=== PATIENT | female | born 1935 | race Hispanic/Latino ===

== ENCOUNTER → 2017-09-27 | Outpatient (CLI) | payer OTHER | END | disposition home or self-care (01) | LOC: RAH 12:57 | PROVIDERS: ATTEND Family Medicine | DX: R09.89 Other specified symptoms and signs involving the circulatory and respiratory systems (principal) | CPT/HCPCS: 93922 ==

== ENCOUNTER → 2017-11-07 | Outpatient (CLI) | payer OTHER ==
[~2017-11-07] VITALS: Ht 172.7 cm; Wt 63.0 kg
[~2017-11-07] MED LIST: REGADENOSON 0.4 MG/5 ML PF SYG IVP SCH
== END | disposition home or self-care (01) ==
LOC: SHCH 08:27
PROVIDERS: ATTEND Internal Medicine Cardiovascular Disease
DX: Z01.818 Encounter for other preprocedural examination (principal); I48.91 Unspecified atrial fibrillation
CPT/HCPCS: 78452; 93017; 96374; A9500 ×2; J2785

== ENCOUNTER 2017-12-30 08:00 | Emergency (ER) | payer OTHER ==
[2017-12-30 09:08] LABS: BASOPHILS % (AUTO) 1.1 % (0.0-5.0); EOSINOPHILS % (AUTO) 1.9 % (0.0-8.0); HEMATOCRIT 46.9 % (36-48); LYMPHOCYTES % (AUTO) 18.8 % (21.0-51.0); MEAN CORPUSCULAR HEMOGLOBIN 29.6 pg (27.0-33.0); MEAN CORPUSCULAR HGB CONC 34.5 g/dL (32.0-36.0); MEAN CORPUSCULAR VOLUME 85.7 fL (79-99); MONOCYTES % (AUTO) 7.9 % (3.0-13.0); NEUTROPHILS % (AUTO) 70.3 % (40.0-77.0); NUCLEATED RED BLOOD CELLS 0.1 % (0.0-0.19); PLATELET COUNT (AUTO) 191 K/uL (130-400); RED BLOOD CELL COUNT(AUTO) 5.47 MIL/uL (4.00-5.50); WHITE BLOOD COUNT (AUTO) 5.2 K/uL (4.8-10.8)
[2017-12-30 09:17] LABS: APPEARANCE,URINE Clear (CLEAR); BILIRUBIN,URINE Negative (NEGATIVE); COLOR,URINE Yellow (YELLOW); GLUCOSE, URINE (UA) Negative (NEGATIVE); KETONES,URINE Negative (NEGATIVE); LEUKOCYTE ESTERASE ,URINE Negative (NEGATIVE); NITRATE,URINE Negative (NEGATIVE); OCCULT BLOOD,URINE Negative (NEGATIVE); PROTEIN,URINE Negative (NEGATIVE)
[2017-12-30 09:22] LABS: INR 1.16 (0.85-1.15); PROTHROMBIN TIME 12.1 SEC (9.6-11.6)
[2017-12-30 10:01] LABS: CREATININE 0.9 mg/dL (0.5-1.5); POTASSIUM 4.1 mmol/L (3.5-5.1)
[2017-12-30 10:14] LABS: ALBUMIN 3.5 g/dL (3.5-5.0); BILIRUBIN,TOTAL 0.8 mg/dL (0.2-1.0); CREATINE KINASE MB 0.8 ng/mL (0.5-3.6); TOTAL PROTEIN, SERUM 6.5 g/dL (6.0-8.3)
== END 2017-12-30 15:51 | disposition home or self-care (01) ==
LOC: EDH 08:00
DX: G45.9 Transient cerebral ischemic attack, unspecified (principal); I48.91 Unspecified atrial fibrillation; E78.5 Hyperlipidemia, unspecified; I10 Essential (primary) hypertension; Z88.6 Allergy status to analgesic agent; Z98.890 Other specified postprocedural states
CPT/HCPCS: 36415; 70450; 71045; 80053; 81003; 82550; 82553; 83874; 84484; 85025; 85610; 85730; 93005; 94761

== ENCOUNTER 2018-08-05 08:27 | Emergency (ER) | payer OTHER ==
[~2018-08-05 08:27] MED LIST changes: +AMLO5TAB9 PO; +APIX5TAB PO; +ATOR20TA65 PO; +BIMA12.5OS OD; +CHOL200059 PO; +FURO40TA5 PO; +GLUC-252 PO; +METO-391 PO; +METO-408 PO; +POTA10TA14 PO; -REGADENOSON 0.4 MG/5 ML PF SYG IVP SCH; +VALS160T29 PO
[2018-08-05] MEDS ORDERED: ONDANSETRON HCL 4 MG/2 ML VIAL ONE (09:47)
[2018-08-05] MEDS ORDERED: MORPHINE SULFATE 4 MG/1ML SYG ONE (09:48)
[2018-08-05 09:54] LABS: BASOPHILS % (AUTO) 0.5 % (0.0-5.0); EOSINOPHILS % (AUTO) 0.1 % (0.0-8.0); HEMATOCRIT 45.9 % (36-48); LYMPHOCYTES % (AUTO) 11.3 % (21.0-51.0); MEAN CORPUSCULAR HEMOGLOBIN 30.2 pg (27.0-33.0); MEAN CORPUSCULAR HGB CONC 34.5 g/dL (32.0-36.0); MEAN CORPUSCULAR VOLUME 87.5 fL (79-99); MONOCYTES % (AUTO) 6.6 % (3.0-13.0); NEUTROPHILS % (AUTO) 81.5 % (40.0-77.0); PLATELET COUNT (AUTO) 199 K/uL (130-400); RED BLOOD CELL COUNT(AUTO) 5.24 MIL/uL (4.00-5.50); RED CELL DISTRIBUTION WIDTH 14.1 % (11.0-15.5); WHITE BLOOD COUNT (AUTO) 8.8 K/uL (4.8-10.8)
[2018-08-05 10:06] LABS: APPEARANCE,URINE Clear (CLEAR); BILIRUBIN,URINE Negative (NEGATIVE); COLOR,URINE Yellow (YELLOW); GLUCOSE, URINE (UA) Negative (NEGATIVE); KETONES,URINE Negative (NEGATIVE); LEUKOCYTE ESTERASE ,URINE Negative (NEGATIVE); NITRATE,URINE Negative (NEGATIVE); OCCULT BLOOD,URINE Negative (NEGATIVE); PROTEIN,URINE Negative (NEGATIVE); UROBILINOGEN,URINE 0.2 mg/dL (0.2-1.0)
[2018-08-05 10:09] LABS: CREATININE 0.8 mg/dL (0.5-1.5); POTASSIUM 3.8 mmol/L (3.5-5.1)
[2018-08-05 10:15] LABS: ALBUMIN 3.4 g/dL (3.5-5.0); BILIRUBIN,TOTAL 0.5 mg/dL (0.2-1.0); TOTAL PROTEIN, SERUM 6.6 g/dL (6.0-8.3)
[2018-08-05] MEDS ORDERED: KETOROLAC TROMETHAMINE 30MG/ML ONE (12:52)
== END 2018-08-05 14:15 | disposition home or self-care (01) ==
LOC: EDH 08:27
DX: R07.81 Pleurodynia (principal); I48.91 Unspecified atrial fibrillation; E78.5 Hyperlipidemia, unspecified; I10 Essential (primary) hypertension; Z88.6 Allergy status to analgesic agent
CPT/HCPCS: 36415; 71045; 71100; 80053; 81003; 85025; 87804 ×2; 93005; 96374; 96375; 99284; J1885; J2270; J2405

== ENCOUNTER → 2020-01-25 | Outpatient (CLI) | payer OTHER | END | disposition home or self-care (01) | DX: I10 Essential (primary) hypertension (principal) ==

== ENCOUNTER → 2020-03-03 | Outpatient (CLI) | payer OTHER | END | disposition home or self-care (01) | LOC: RAH 11:58 | PROVIDERS: ATTEND Internal Medicine Cardiovascular Disease | DX: J45.909 Unspecified asthma, uncomplicated (principal); I27.20 Pulmonary hypertension, unspecified; R94.31 Abnormal electrocardiogram [ECG] [EKG] | CPT/HCPCS: 71250 ==

== ENCOUNTER 2020-03-11 08:02 | Day surgery (SDC) | payer OTHER ==
[2020-03-03 14:06] LABS: BASOPHILS % (AUTO) 0.7 % (0.0-5.0); EOSINOPHILS % (AUTO) 1.4 % (0.0-8.0); HEMATOCRIT 46.1 % (36-48); LYMPHOCYTES % (AUTO) 19.8 % (21.0-51.0); MEAN CORPUSCULAR HEMOGLOBIN 29.6 pg (27.0-33.0); MEAN CORPUSCULAR HGB CONC 33.6 g/dL (32.0-36.0); MONOCYTES % (AUTO) 9.1 % (3.0-13.0); NEUTROPHILS % (AUTO) 68.9 % (40.0-77.0); PLATELET COUNT (AUTO) 223 K/uL (130-400); RED BLOOD CELL COUNT(AUTO) 5.24 MIL/uL (4.00-5.50); RED CELL DISTRIBUTION WIDTH 14.3 % (11.0-15.5); WHITE BLOOD COUNT (AUTO) 7.3 K/uL (4.8-10.8)
[2020-03-03 14:14] LABS: POTASSIUM 4.5 mmol/L (3.5-5.1)
[2020-03-03 14:21] LABS: APPEARANCE,URINE Cloudy (CLEAR); BILIRUBIN,URINE Negative (NEGATIVE); COLOR,URINE Yellow (YELLOW); GLUCOSE, URINE (UA) Negative (NEGATIVE); KETONES,URINE Negative (NEGATIVE); LEUKOCYTE ESTERASE ,URINE Negative (NEGATIVE); NITRATE,URINE Positive (NEGATIVE); OCCULT BLOOD,URINE Negative (NEGATIVE); PROTEIN,URINE Negative (NEGATIVE)
[2020-03-03 14:29] LABS: INR 1.16 (0.85-1.15); PARTIAL THROMBOPLASTIN TIME 30.5 SEC (26.3-35.5); PROTHROMBIN TIME 12.5 SEC (9.6-11.6)
[2020-03-03 14:40] LABS: BACTERIA,URINE Moderate /HPF (None Seen); CALCIUM OXALATE CRYSTALS,UR Few /LPF (None Seen); MUCUS,URINE Few LPF (None Seen); SQUAMOUS EPITHELIAL CELL,UR Many /HPF (0-2)
--- NOTE | 2020-03-10 15:17 | NUR ---
labs abnormal labs reported to dr. adelia storey. as per Dianaaliya storey will call in macrobid (antibiotics ) for uti , to patient's pharmacy .
[2020-03-11] VITALS (8 sets, daily range): BP systolic 133–210; BP diastolic 63–110
[~2020-03-11] VITALS: Ht 161.3 cm; Wt 109.5 kg
[~2020-03-11 08:02] MED LIST changes: +ASPI-1443 PO; -BIMA12.5OS OD; -CHOL200059 PO; -GLUC-252 PO; +LOSA50TA64 PO; -METO-408 PO; +SODIUM CHLORIDE 0.9% 1000ML 1,000 ML IV SCH; -VALS160T29 PO
[2020-03-11] MEDS ORDERED: ADENOSINE 90MG/30ML VIAL IV ONE ×2 (09:35→11:24)
--- NOTE | 2020-03-11 10:00 | NUR ---
Advised Doctor Nicki about patient bp being high ([employer] vitals), and explained patient was anxious due to frequent urination, okay to put cotto. Inserted cotto at 1000am, patient tolerate well and cotto labeled and secured. Also patient was suppose to start an antibiotic due to uti but daughter Drew Serrato indicated patient has not received from pharmacy.
[2020-03-11] MEDS ORDERED: IOHEXOL 350 MG/ML 100ML INFUS..BTL IV ONE (11:03)
[2020-03-11] MEDS ORDERED: NITROGLYCERIN 2 MG/VIAL VIAL IV ONE (11:03)
[2020-03-11] MEDS ORDERED: LIDOCAINE HCL 2% 20ML ONE (11:03)
[2020-03-11] MEDS ORDERED: IOHEXOL-350 50ML VIAL IV ONE (11:03)
[2020-03-11] MEDS ORDERED: MIDAZOLAM HCL 1 MG/ML 2ML VIAL ONE (11:43)
[2020-03-11] MEDS ORDERED: HYDRALAZINE HCL 20 MG/ML VIAL ONE (11:54)
[2020-03-11] MEDS ORDERED: CEFAZOLIN SODIUM 1 GM VIAL ONE (12:42)
[2020-03-11] MEDS ORDERED: SODIUM CHLORIDE 0.9% 10 ML VIAL IVP SCH (13:00)
== END 2020-03-11 16:02 | disposition home or self-care (01) ==
LOC: DAH 08:02
PROVIDERS: ATTEND Internal Medicine Cardiovascular Disease
DX: I20.0 Unstable angina (principal); I48.20 Chronic atrial fibrillation, unspecified; I27.20 Pulmonary hypertension, unspecified; E78.5 Hyperlipidemia, unspecified; K72.90 Hepatic failure, unspecified without coma; Z79.01 Long term (current) use of anticoagulants; Z79.899 Other long term (current) drug therapy; G47.30 Sleep apnea, unspecified
CPT/HCPCS: 36415; 71045; 80048; 81001; 85025; 85610; 85730; 87077; 87088; 87186; 93005; 93460; A4215; A4216; A4221; A4222; A4223 ×3; A4606; A4663; C1760; C1894 ×2; J0360; J0690; J1644; J2250; J3490 ×2; Q9965; Q9967 ×2; 99156; 99157; J0153

== ENCOUNTER → 2021-02-10 | Outpatient (CLI) | payer OTHER ==
[~2021-02-10] MED LIST changes: +AMLO-257 PO; -AMLO5TAB9 PO; -SODIUM CHLORIDE 0.9% 1000ML 1,000 ML IV SCH
== END | disposition home or self-care (01) ==
LOC: SLP 20:16
PROVIDERS: ATTEND Internal Medicine Cardiovascular Disease
DX: G47.33 Obstructive sleep apnea (adult) (pediatric) (principal); I10 Essential (primary) hypertension; E66.9 Obesity, unspecified; R35.1 Nocturia
CPT/HCPCS: 95810

== ENCOUNTER → 2021-09-17 | Outpatient (CLI) | payer OTHER | END | disposition home or self-care (01) | LOC: RAH 08:20 | PROVIDERS: ATTEND Family Medicine | DX: N64.4 Mastodynia (principal) | CPT/HCPCS: 76641; 77066 ==

== ENCOUNTER 2022-03-25 09:20 | Emergency (ER) | payer OTHER ==
[~2022-03-25] VITALS: Ht 165.1 cm; Wt 104.3 kg
[2022-03-25 09:59] LABS: BASOPHILS % (AUTO) 0.8 % (0.0-5.0); EOSINOPHILS % (AUTO) 0.9 % (0.0-8.0); HEMATOCRIT 45.1 % (36-48); LYMPHOCYTES % (AUTO) 11.6 % (21.0-51.0); MEAN CORPUSCULAR HEMOGLOBIN 29.5 pg (27.0-33.0); MEAN CORPUSCULAR HGB CONC 34.1 g/dL (32.0-36.0); MEAN CORPUSCULAR VOLUME 86.4 fL (79-99); MONOCYTES % (AUTO) 6.1 % (3.0-13.0); NEUTROPHILS % (AUTO) 80.4 % (40.0-77.0); PLATELET COUNT (AUTO) 203 K/uL (130-400); RED BLOOD CELL COUNT(AUTO) 5.22 MIL/uL (4.00-5.50); RED CELL DISTRIBUTION WIDTH 15.4 % (11.0-15.5); WHITE BLOOD COUNT (AUTO) 9.2 K/uL (4.8-10.8)
[2022-03-25 10:16] LABS: POTASSIUM 4.2 mmol/L (3.5-5.1)
[2022-03-25 10:21] LABS: ALBUMIN 3.6 g/dL (3.5-5.0); TOTAL PROTEIN, SERUM 6.8 g/dL (6.0-8.3)
[2022-03-25 10:27] LABS: INR 1.21 (0.85-1.15)
[2022-03-25 10:28] LABS: PARTIAL THROMBOPLASTIN TIME 31.5 SEC (26.3-35.5)
[2022-03-25] MEDS ORDERED: NITROGLYCERIN 1GM OINT 1 INCH/1GM TD ONE (10:30)
[2022-03-25] MEDS ORDERED: FUROSEMIDE 40MG VIAL IV ONE (10:30)
[2022-03-25 10:48] LABS: B-TYPE NATRIURETIC PEPTIDE 335 pg/mL (0-100)
[2022-03-25 14:46] VITALS: BP 143/76
== END 2022-03-25 15:32 | disposition home or self-care (01) ==
LOC: EDH 09:20
DX: I11.0 Hypertensive heart disease with heart failure (principal); I50.9 Heart failure, unspecified; Z20.822 Contact with and (suspected) exposure to COVID-19; I48.91 Unspecified atrial fibrillation; E78.00 Pure hypercholesterolemia, unspecified; Z90.49 Acquired absence of other specified parts of digestive tract; Z98.890 Other specified postprocedural states; Z79.01 Long term (current) use of anticoagulants; Z79.899 Other long term (current) drug therapy; Z88.8 Allergy status to other drugs, medicaments and biological substances; Z88.6 Allergy status to analgesic agent; Z79.82 Long term (current) use of aspirin
CPT/HCPCS: 99285; 96374; 71045; 87635; 83735; 84484 ×2; 80053; 83880; 85025; 85610; 85730; 36415; 93005; C9803; J1940

== ENCOUNTER 2023-01-14 07:22 | Observation (INO) | payer OTHER ==
[~2023-01-14] VITALS: Ht 157.5 cm; Wt 109.6 kg
[2023-01-14 08:06] LABS: EOSINOPHILS % (AUTO) 1.1 % (0.0-8.0); HEMATOCRIT 46.9 % (36-48); LYMPHOCYTES % (AUTO) 15.9 % (21.0-51.0); MEAN CORPUSCULAR HEMOGLOBIN 28.6 pg (27.0-33.0); MEAN CORPUSCULAR HGB CONC 33.5 g/dL (32.0-36.0); MEAN CORPUSCULAR VOLUME 85.6 fL (79-99); NEUTROPHILS % (AUTO) 73.7 % (40.0-77.0); PLATELET COUNT (AUTO) 185 K/uL (130-400); RED BLOOD CELL COUNT(AUTO) 5.48 MIL/uL (4.00-5.50); RED CELL DISTRIBUTION WIDTH 14.7 % (11.0-15.5); WHITE BLOOD COUNT (AUTO) 6.1 K/uL (4.8-10.8)
[2023-01-14] MEDS ORDERED: IOHEXOL 350 MG/ML 100ML INFUS..BTL IV ONE (08:17)
[2023-01-14 08:21] LABS: INR 1.2 (0.85-1.15); PROTHROMBIN TIME 13.8 SEC (9.6-11.6)
[2023-01-14 08:23] LABS: PARTIAL THROMBOPLASTIN TIME 35.6 SEC (26.3-35.5)
[2023-01-14 08:26] LABS: ALBUMIN 3.4 g/dL (3.5-5.0); POTASSIUM 3.8 mmol/L (3.5-5.1); TOTAL PROTEIN, SERUM 6.6 g/dL (6.0-8.3)
[2023-01-14] MEDS ORDERED: TORS20TA4 PO (10:02)
[2023-01-14] MEDS ORDERED: LATA2.5D14 OP (10:02)
[2023-01-14] MEDS ORDERED: FISH1CAP50 PO (10:02)
[2023-01-14] MEDS ORDERED: OLME40TA18 PO (10:02)
[2023-01-14] MEDS ORDERED: GLUCAGON 1MG KIT 1 MG ML IM PRN (10:30)
[2023-01-14] MEDS ORDERED: GUAIFENESIN SUGAR-FREE 100 MG/5 ML UDCUP PO PRN (10:30)
[2023-01-14] MEDS ORDERED: ACETAMINOPHEN 325 MG TAB PO PRN ×2 (10:30)
[2023-01-14] MEDS ORDERED: POTASSIUM CHLORIDE 20MEQ/100ML 100 ML IV PRN ×2 (10:30)
[2023-01-14] MEDS ORDERED: BENZOCAINE/MENTH/CETYLPYRD CL 1 EACH LOZENGE MM PRN (10:30)
[2023-01-14] MEDS ORDERED: ALBUTEROL 0.083% 2.5 MG/3 ML INH IH PRN (10:30)
[2023-01-14] MEDS ORDERED: ARTIFICAL TEARS SOL 15 ML OP PRN (10:30)
[2023-01-14] MEDS ORDERED: HYDRALAZINE 25MG TABLET PO PRN (10:30)
[2023-01-14] MEDS ORDERED: POTASSIUM CHLORIDE 10% ELIXIR 20 MEQ/15 ML UDCUP PO PRN (10:30)
[2023-01-14] MEDS ORDERED: DEXTROSE 50%-WATER 50 ML DISP.SYRIN IV PRN (10:30)
[2023-01-14] MEDS ORDERED: DIPHENHYDRAMINE HCL 25 MG CAPSULE PO PRN (10:30)
[2023-01-14] MEDS ORDERED: LOPERAMIDE HCL 2 MG CAP PO PRN (10:30)
[2023-01-14] MEDS ORDERED: MAGNESIUM 2GM PREMIX 50ML 50 ML IV PRN (10:30)
[2023-01-14] MEDS ORDERED: DOCUSATE SODIUM 100 MG CAP PO PRN (10:30)
[2023-01-14] MEDS ORDERED: ONDANSETRON 4MG INJ IV PRN (10:30)
[2023-01-14] MEDS ORDERED: DiphenhydrAMINE HCL 50 MG/ML VIAL IV PRN (10:30)
[2023-01-14] MEDS ORDERED: POLYETHYLENE GLYCOL 3350 17 GM POWD.PACK PO PRN (10:30)
[2023-01-14] MEDS: INSULIN HUMULIN R 100 UNIT/ML 3ML SQ SCH ×3 (11:30→20:08)
[2023-01-14] MEDS ORDERED: FISH OIL PO SCH (12:30)
[2023-01-14] MEDS ORDERED: [UNRECOGNIZED DRUG - OTHER] PO SCH (12:30)
[2023-01-14] MEDS ORDERED: FATTY ACIDS PO SCH (12:30)
[2023-01-14] MEDS ORDERED: OMEGA PO SCH (12:30)
[2023-01-14] MEDS ORDERED: ALPRAZOLAM 0.5 MG TABLET PO PRN (13:00)
[2023-01-14] MEDS ORDERED: CEFAZOLIN SODIUM 2 GM VIAL IVPB PRN (17:00)
[2023-01-14 17:50] VITALS: BP 151/90
[2023-01-14 19:03] VITALS: BP 136/64
[2023-01-14] MEDS: ATORVASTATIN 20 MG TABLET PO SCH (20:10)
[2023-01-14] MEDS: FAMOTIDINE 20MG TAB PO SCH (20:11)
[2023-01-14] MEDS: APIXABAN 5 MG TABLET PO SCH (20:11)
[2023-01-14] MEDS ORDERED: POTASSIUM CHLORIDE PO SCH (21:00)
[2023-01-14 22:50] VITALS: BP 134/62
[2023-01-15 03:12] VITALS: BP 158/80
[2023-01-15 05:42] LABS: HEMATOCRIT 44.7 % (36-48); MEAN CORPUSCULAR HEMOGLOBIN 28.9 pg (27.0-33.0); MEAN CORPUSCULAR HGB CONC 32.2 g/dL (32.0-36.0); MEAN CORPUSCULAR VOLUME 89.8 fL (79-99); RED BLOOD CELL COUNT(AUTO) 4.98 MIL/uL (4.00-5.50); RED CELL DISTRIBUTION WIDTH 14.8 % (11.0-15.5); WHITE BLOOD COUNT (AUTO) 5.5 K/uL (4.8-10.8)
[2023-01-15] MEDS: INSULIN HUMULIN R 100 UNIT/ML 3ML SQ SCH ×4 (05:47→20:39)
[2023-01-15 06:13] LABS: CREATININE 0.9 mg/dL (0.5-1.5); POTASSIUM 3.4 mmol/L (3.5-5.1); THYROID STIMULATING HORMONE 2.17 uIU/mL (0.36-3.74)
[2023-01-15 08:00] VITALS: BP 164/77
[2023-01-15] MEDS: FISH OIL 1000 MG/CAP PO SCH (08:58)
[2023-01-15] MEDS: AMLODIPINE 5 MG TAB PO SCH (08:58)
[2023-01-15] MEDS: ASPIRIN 81 MG EC TAB PO SCH (08:58)
[2023-01-15] MEDS: FUROSEMIDE 40 MG TABLET PO SCH (08:58)
[2023-01-15] MEDS: METOPROLOL SUCCINATE 50 MG TAB.SR.24H PO SCH (08:58)
[2023-01-15] MEDS: APIXABAN 5 MG TABLET PO SCH ×2 (08:58→20:30)
[2023-01-15] MEDS: KCL 20 MEQ ERTAB PO PRN (09:00)
[2023-01-15 12:00] VITALS: BP 145/66
[2023-01-15] MEDS: LATANOPROST 2.5 ML DROPS OP SCH (12:36)
[2023-01-15] MEDS ORDERED: KCL 20 MEQ ERTAB PO ONE (13:00)
[2023-01-15 16:00] VITALS: BP 133/78
[2023-01-15 20:00] VITALS: BP 160/78
[2023-01-15] MEDS: ATORVASTATIN 20 MG TABLET PO SCH (20:30)
[2023-01-15] MEDS: FAMOTIDINE 20MG TAB PO SCH (20:30)
[2023-01-16] VITALS: BP 145/70
[2023-01-16 04:00] VITALS: BP 146/81
[2023-01-16 05:05] LABS: BASOPHILS % (AUTO) 0.5 % (0.0-5.0); EOSINOPHILS % (AUTO) 1.7 % (0.0-8.0); HEMATOCRIT 46.5 % (36-48); LYMPHOCYTES % (AUTO) 21.4 % (21.0-51.0); MEAN CORPUSCULAR HEMOGLOBIN 28.5 pg (27.0-33.0); MEAN CORPUSCULAR HGB CONC 32.9 g/dL (32.0-36.0); MEAN CORPUSCULAR VOLUME 86.6 fL (79-99); MONOCYTES % (AUTO) 9.6 % (3.0-13.0); NEUTROPHILS % (AUTO) 66.5 % (40.0-77.0); PLATELET COUNT (AUTO) 199 K/uL (130-400); RED BLOOD CELL COUNT(AUTO) 5.37 MIL/uL (4.00-5.50); RED CELL DISTRIBUTION WIDTH 14.8 % (11.0-15.5); WHITE BLOOD COUNT (AUTO) 5.9 K/uL (4.8-10.8)
[2023-01-16 05:17] LABS: ALBUMIN 3.1 g/dL (3.5-5.0); CREATININE 0.9 mg/dL (0.5-1.5); POTASSIUM 3.5 mmol/L (3.5-5.1); TOTAL PROTEIN, SERUM 6.1 g/dL (6.0-8.3)
[2023-01-16] MEDS: INSULIN HUMULIN R 100 UNIT/ML 3ML SQ SCH ×2 (06:01→11:30)
[2023-01-16 08:13] VITALS: BP 124/77
[2023-01-16] MEDS: FISH OIL 1000 MG/CAP PO SCH (09:07)
[2023-01-16] MEDS: ASPIRIN 81 MG EC TAB PO SCH (09:07)
[2023-01-16] MEDS: FUROSEMIDE 40 MG TABLET PO SCH (09:07)
[2023-01-16] MEDS: METOPROLOL SUCCINATE 50 MG TAB.SR.24H PO SCH (09:07)
[2023-01-16] MEDS: AMLODIPINE 5 MG TAB PO SCH (09:07)
[2023-01-16] MEDS: APIXABAN 5 MG TABLET PO SCH (09:07)
[2023-01-16] MEDS: KCL 20 MEQ ERTAB PO PRN (09:08)
[2023-01-16] MEDS: LATANOPROST 2.5 ML DROPS OP SCH (09:09)
[2023-01-16 12:00] VITALS: BP 156/89
[2023-01-16] MEDS ORDERED: FISH1CAP20 PO (13:35)
[2023-01-16] MEDS ORDERED: FAMO20TA8 PO (13:35)
[2023-01-17] MEDS ORDERED: LATANOPROST 2.5 ML DROPS OP SCH (08:00)
== END 2023-01-16 15:20 | disposition home or self-care (01) ==
LOC: EDH 07:22 → EDHIP 10:01 → 3DH 17:50
PROVIDERS: ADMIT Internal Medicine; ATTEND Internal Medicine
DX: R20.0 Anesthesia of skin (principal); R47.81 Slurred speech; R20.2 Paresthesia of skin; I10 Essential (primary) hypertension; I48.91 Unspecified atrial fibrillation; K59.00 Constipation, unspecified; E66.9 Obesity, unspecified; E78.5 Hyperlipidemia, unspecified; E78.00 Pure hypercholesterolemia, unspecified; Z86.73 Personal history of transient ischemic attack (TIA), and cerebral infarction without residual deficits; Z68.36 Body mass index [BMI] 36.0-36.9, adult; Z79.01 Long term (current) use of anticoagulants; Z90.710 Acquired absence of both cervix and uterus; Z79.899 Other long term (current) drug therapy
CPT/HCPCS: 99285; 84484; 80053 ×3; 85025 ×2; 85610; 85730; 82948 ×9; 36415 ×3; 70450; 70496; 70498; 93880; 70551; 92522; 92610; 93005; 84443; 85027; 93306; 93356; 97161; 97116 ×2; 83735; G0378 ×51; Q9967

== ENCOUNTER 2024-02-06 19:03 | Emergency (ER) | payer OTHER ==
[~2024-02-06] VITALS: Ht 157.5 cm; Wt 109.8 kg
[~2024-02-06 19:03] MED LIST changes: +FAMO20TA8 PO; +FISH1CAP20 PO; +FISH1CAP50 PO; +LATA2.5D14 OP; -LOSA50TA64 PO; +OLME40TA18 PO; +TORS20TA4 PO
[2024-02-06] MEDS: KETOROLAC 30MG VIAL (30MG/ML) IM ONE (19:54)
[2024-02-06] MEDS: ORPHENADRINE 60MG/2ML IM ONE (19:54)
[2024-02-06] MEDS ORDERED: DICL20GE TP (20:20)
[2024-02-06] MEDS ORDERED: METH-662 PO (20:20)
[2024-02-06 20:28] VITALS: BP 166/85; PULSE 62; RESP 16; O2SAT 95
== END 2024-02-06 20:36 | disposition home or self-care (01) ==
LOC: EDH 19:03
DX: E78.00 Pure hypercholesterolemia, unspecified (principal); I10 Essential (primary) hypertension; I48.91 Unspecified atrial fibrillation; Z88.5 Allergy status to narcotic agent; Z79.82 Long term (current) use of aspirin; Z79.899 Other long term (current) drug therapy; Z90.49 Acquired absence of other specified parts of digestive tract; Z90.710 Acquired absence of both cervix and uterus; Z98.890 Other specified postprocedural states
CPT/HCPCS: 99284; 96372 ×2; 93005; J1885; J2360